=== PATIENT | male | born 1990 | race Caucasian/White ===

== ENCOUNTER 2017-01-26 16:26 | Emergency (ER) | payer SELFPAY ==
[~2017-01-26] VITALS: Ht 188 cm; Wt 81.0 kg
[2017-01-26 16:37] VITALS: BP 131/93
[2017-01-26] MEDS ORDERED: ONDANSETRON 2MG/ML, 2ML ONE (17:29)
[2017-01-26] MEDS ORDERED: LORazepam 2 MG/ML, 1ML ONE (17:29)
[2017-01-26] MEDS ORDERED: SODIUM CHLORIDE 0.9% 1,000ML IVBOLUS ONE (17:30)
[2017-01-26] MEDS ORDERED: ONDANSETRON 2MG/ML, 2ML IVPush ONE (17:30)
[2017-01-26] MEDS ORDERED: LORazepam 2 MG/ML, 1ML IVPush ONE (17:30)
[2017-01-26 17:42] LABS: BLOOD UREA NITROGEN 8 mg/dL (7-18)
== END 2017-01-26 19:06 | disposition home or self-care (01) ==
LOC: ED 17:05
DX: F10.239 Alcohol dependence with withdrawal, unspecified (principal); F15.93 Other stimulant use, unspecified with withdrawal
CPT/HCPCS: 36415; 80048; 82040; 85025; 96361; 96374; 96375; 99284; J2060; J2405; J7030